=== PATIENT | male | born 1965 | race Caucasian/White ===

== ENCOUNTER 2016-09-08 | Emergency (ER) | payer MEDICARE, MEDICAID ==
[2016-09-08] MEDS ORDERED: ONDANSETRON HCL INJ/PF 4 MG/2 ML SDV IV ONE (00:57)
[2016-09-08] MEDS ORDERED: ASPIRIN 81 MG TABLET, CHEWABLE PO ONE (00:57)
[2016-09-08] MEDS ORDERED: MORPHINE SULFATE 10 MG/ML INJ IV ONE (00:57)
--- NOTE | 2016-09-08 00:59 | ER Document Report ---
ED General - General Chief Complaint: Chest Pain Stated Complaint: CHEST PAIN,DIZZY,NAUSEA Time Seen by Provider: 09/08/16 00:49 Notes: Patient is a 51-year-old male that comes emergency department for chief complaint of chest pain, pain in his lower back, headache, intermittent lightheadedness. Patient states he started feeling symptoms at 2 PM today, he states he just arrived in town, he is moving from [facility]. Patient states symptom onset began with pain in his lower back on both sides. He denies shortness of breath, denies fever, denies vomiting, reports some nausea. Patient denies any history of AK, past medical history of hypertension, hyperlipidemia, hypothyroidism, kidney stones, anxiety. He normally takes 325 mg of aspirin daily, did not today, takes Xanax and Valium for anxiety, took neither today. Father had an AK. TRAVEL OUTSIDE OF THE [place] IN LAST 30 DAYS: No - Related Data Allergies/Adverse Reactions: azithromycin [From Zithromax] Allergy (Verified 09/08/16 02:04) carbamazepine [From Tegretol] Allergy (Verified 09/08/16 02:04) Penicillins Allergy (Verified 09/08/16 02:04) phenobarbital Allergy (Verified 09/08/16 02:04) phenytoin [From Dilantin] Allergy (Verified 09/08/16 02:04) Sulfa (Sulfonamide Antibiotics) Allergy (Verified 09/08/16 02:04) IVP Dye Allergy (Uncoded 09/08/16 02:04) Past Medical History - General Information source: Patient - Social History Smoking Status: Never Smoker Frequency of alcohol use: None Drug Abuse: None Lives with: Family Family History: CAD - father had an AK Patient has suicidal ideation: No Patient has homicidal ideation: No - Past Medical History Cardiac Medical History: Reports: Hx Hypercholesterolemia, Hx Hypertension Neurological Medical History: Reports: Hx Seizures Endocrine Medical History: Reports: Hx Hypothyroidism Renal/ Medical History: Denies: Hx Peritoneal Dialysis Musculoskeltal Medical History: Reports Hx Arthritis Psychiatric Medical History: Reports: Hx Anxiety Surgical Hx: Negative - Immunizations Immunizations up to date: Yes Hx Diphtheria, Pertussis, Tetanus Vaccination: Yes Review of Systems - Review of Systems Constitutional: See HPI EENT: No symptoms reported Cardiovascular: See HPI Respiratory: No symptoms reported Gastrointestinal: See HPI Genitourinary: No symptoms reported Male Genitourinary: No symptoms reported Musculoskeletal: See HPI Skin: No symptoms reported Hematologic/Lymphatic: No symptoms reported Neurological/Psychological: See HPI Physical Exam - Vital signs Vitals: Temp Pulse Resp BP Pulse Ox 97.4 F 96 16 130/90 H 100 09/08/16 00:07 09/08/16 00:07 09/08/16 00:07 09/08/16 00:07 09/08/16 00:07 Interpretation: Normal - General General appearance: Anxious In distress: None - HEENT Head: Normocephalic, Atraumatic Eyes: Normal Conjunctiva: Normal Extraocular movements intact: Yes Eyelashes: Normal Pupils: PERRL Nasal: Normal Mouth/Lips: Normal Mucous membranes: Normal Pharynx: Normal Neck: Normal - Respiratory Respiratory status: No respiratory distress Chest status: Tender - There is mild generalized tenderness over the anterior abdomen worse on the left side, nonspecific, no swelling, no ecchymosis, not specifically reproducible Breath sounds: Normal. No: Decreased air movement, Wheezing Chest palpation: Normal - Cardiovascular Rhythm: Regular. No: Tachycardia Heart sounds: Normal auscultation, S1 appreciated, S2 appreciated Murmur: No - Abdominal Inspection: Normal Distension: No distension Bowel sounds: Normal Tenderness: Nontender - Completely unremarkable abdominal exam. No: Tender, Guarding Organomegaly: No organomegaly - Back Back: Normal, Nontender. No: Tender - I do not appreciate any tenderness or abnormality over the back, CVA tenderness - Extremities General upper extremity: Normal inspection, Nontender, Normal color, Normal ROM , Normal temperature General lower extremity: Normal inspection, Nontender, Normal color, Normal ROM , Normal temperature, Normal weight bearing. No: Rosas's sign - Neurological Neuro grossly intact: Yes Cognition: Normal Orientation: AAOx4 Aidan Coma Scale Eye Opening: Spontaneous Hungry Horse Coma Scale Verbal: Oriented Hung[place] Horse Coma Scale Motor: Obeys Commands Aidan Coma Scale Total: 15 Speech: Normal Motor strength normal: LUE, RUE, LLE, RLE Sensory: Normal - Psychological Associated symptoms: Other - Patient becomes anxious easily but does carry on a coherent conversation, is not aggressive or agitated, is not irritable - Skin Skin Temperature: Warm Skin Moisture: Dry Skin Color: Normal Course - Re-evaluation Re-evalutation: EKG showing sinus rhythm with no T-wave inversions or ST segment changes in consecutive leads. Borderline left axis deviation. No acute abnormalities. Chest x-ray unremarkable. Chemistry, CBC unremarkable. Initial cardiac enzymes negative, d-dimer is negative. On reexamination patient states he feels much better but feels like he cannot relax and is still having some intermittent pains. Given Ativan, after this symptoms completely resolved. I discussed workup with patient, discussed potential follow-up with cardiology, discussed telemetry observation in the hospital. Patient states he is not palpable going home. Patient does have positive family history, hypertension, hyperlipidemia, obesity. Discussed with Dr. Jones. Discussed with Dr. Whaley, internal medicine, patient will be admitted to telemetry observation. - Vital Signs Vital signs: Temp Pulse Resp BP Pulse Ox 97.4 F 75 18 124/95 H 97 09/08/16 00:07 09/08/16 04:18 09/08/16 02:01 09/08/16 04:00 09/08/16 04:01 - Laboratory Result Diagrams: 09/08/16 01:35 09/08/16 01:35 Discharge - Discharge Clinical Impression: Chest pain Qualifiers: Chest pain type: unspecified Qualified Code(s): R07.9 - Chest pain, unspecified Condition: Stable Disposition: HOME, SELF-CARE Admitting Provider: Hospitalist Unit Admitted: Telemetry
[2016-09-08 01:44] LABS: ABSOLUTE EOSINOPHILS # (AUTO) 0.1 10^3/uL (0.0-0.6); ABSOLUTE LYMPHOCYTES (AUTO) 3.6 10^3/uL (0.5-4.7); ABSOLUTE MONOCYTES (AUTO) 0.8 10^3/uL (0.1-1.4); ABSOLUTE NEUT (AUTO) 4.2 10^3/uL (1.7-8.2); BASOPHILS % (AUTO) 0.5 % (0-2); EOSINOPHILS % (AUTO) 0.9 % (0-6); HEMATOCRIT 43.6 % (37.9-51.0); HEMOGLOBIN 14.9 g/dL (13.5-17.0); HGB HCT DIFFERENCE 1.1; LYMPHOCYTES % (AUTO) 41.3 % (13-45); MEAN CORPUSCULAR HGB CONC 34.3 g/dL (32.0-36.0); MEAN CORPUSCULAR VOLUME 93 fl (80-97); MONOCYTES % (AUTO) 9.1 % (3-13); RED BLOOD COUNT 4.67 10^6/uL (4.35-5.55); RED CELL DISTRIBUTION WIDTH 13.9 % (11.5-14.0); SEGMENTED NEUTROPHILS % (AUTO) 48.2 % (42-78); WHITE BLOOD COUNT 8.7 10^3/uL (4.0-10.5)
[2016-09-08 01:59] LABS: ALANINE AMINOTRANSFERASE 47 U/L (21-72); ALBUMIN 4.4 g/dL (3.5-5.0); ALKALINE PHOSPHATASE 69 U/L (38-126); ANION GAP 11 (5-19); ASPARTATE AMINO TRANSFERASE 31 U/L (17-59); BILIRUBIN,DIRECT 0.4 mg/dL (0.0-0.4); BILIRUBIN,TOTAL 0.8 mg/dL (0.2-1.3); BLOOD UREA NITROGEN 14 mg/dL (7-20); CALCIUM 9.7 mg/dL (8.4-10.2); CARBON DIOXIDE 25 mmol/L (22-30); CHLORIDE 105 mmol/L (98-107); CREATINE KINASE 68 U/L (55-170); CREATININE RESULT 0.79 mg/dL (0.52-1.25); GLUCOSE 110 mg/dL (75-110); POTASSIUM 4.6 mmol/L (3.6-5.0); SODIUM 140.9 mmol/L (137-145)
[2016-09-08 02:10] LABS: CREATINE KINASE MB 0.58 ng/mL (<4.55)
[2016-09-08 02:11] LABS: TROPONIN I < 0.012 ng/mL
[2016-09-08] MEDS ORDERED: LORAZEPAM 1 MG TABLET PO ONE (03:02)
[2016-09-08 05:30] LABS: APPEARANCE,URINE CLEAR; BILIRUBIN,URINE NEGATIVE (NEGATIVE); GLUCOSE, URINE NEGATIVE (NEGATIVE); KETONES,URINE NEGATIVE (NEGATIVE); LEUKOCYTE ESTERASE,URINE NEGATIVE (NEGATIVE); NITRITE,URINE NEGATIVE (NEGATIVE); PROTEIN,URINE NEGATIVE (NEGATIVE); URINE SPECIFIC GRAVITY 1.015; UROBILINOGEN,URINE NEGATIVE mg/dL (<2.0)
[2016-09-08] MEDS ORDERED: TRAZODONE HCL 50 MG TABLET PO PRN (05:30)
[2016-09-08] MEDS ORDERED: DIAZEPAM 5 MG TABLET PO PRN (05:30)
--- NOTE | 2016-09-08 05:51 | PDOC H&P ---
History of Present Illness Admission Date/PCP: 09/08/16 04:40 Patient complains of: Chest pain History of Present Illness: GABRIELLE QUILES is a 51 year old male with a past medical history of seizure disorder, dyslipidemia, hypothyroidism, hypertension and obesity who been in his usual state of health until approximately 12 hours prior to presentation developing left-sided retrosternal chest pain which was dull in nature and nonradiating occurring while at rest. Not associated with shortness of breath palpitations nausea vomiting however his pain is becoming gradually worse to a 4 -5 intensity prompting his seek evaluation emergency room. He's had several episodes in the past and believes he has had between 6 and 8 negative cardiac stress tests. He believes his most recent was approximately a year ago. His previous chest pain was believed secondary to uncontrolled hypertension. In the emergency room he has an unremarkable workup is referred to the hospitalist for admission. Denies leg swelling shortness of breath or cough and recent change in medications. Past Medical History Cardiac Medical History: Reports: Hypertension Endocrine Medical History: Reports: Hypothyroidism, Obesity Social History Information Source: Patient Lives with: Family Smoking Status: Never Smoker Drugs: None - Advance Directive Resuscitation Status: Full Code Family History Family History: CAD Parental Family History Reviewed: Yes Children Family History Reviewed: Yes Sibling(s) Family History Reviewed.: Yes Medication/Allergy Allergies/Adverse Reactions: azithromycin [From Zithromax] Allergy (Verified 09/08/16 02:04) carbamazepine [From Tegretol] Allergy (Verified 09/08/16 02:04) Penicillins Allergy (Verified 09/08/16 02:04) phenobarbital Allergy (Verified 09/08/16 02:04) phenytoin [From Dilantin] Allergy (Verified 09/08/16 02:04) Sulfa (Sulfonamide Antibiotics) Allergy (Verified 09/08/16 02:04) IVP Dye Allergy (Uncoded 09/08/16 02:04) Review of Systems Constitutional: ABSENT: chills, fever(s), headache(s), weight gain, weight loss Eyes: ABSENT: visual disturbances Ears: ABSENT: hearing changes Cardiovascular: ABSENT: chest pain, dyspnea on exertion, edema, orthropnea, palpitations Respiratory: ABSENT: cough, hemoptysis Gastrointestinal: ABSENT: abdominal pain, constipation, diarrhea, hematemesis, hematochezia, nausea, vomiting Genitourinary: ABSENT: dysuria, hematuria Musculoskeletal: ABSENT: joint swelling Integumentary: ABSENT: rash, wounds Neurological: ABSENT: abnormal gait, abnormal speech, confusion, dizziness, focal weakness, syncope Psychiatric: ABSENT: anxiety, depression, homidical ideation, suicidal ideation Endocrine: ABSENT: cold intolerance, heat intolerance, polydipsia, polyuria Hematologic/Lymphatic: ABSENT: easy bleeding, easy bruising Physical Exam Vital Signs: Temp Pulse Resp BP Pulse Ox 97.4 F 75 18 124/95 H 97 09/08/16 00:07 09/08/16 04:18 09/08/16 02:01 09/08/16 04:00 09/08/16 04:01 General appearance: PRESENT: no acute distress, well-developed, well-nourished Head exam: PRESENT: atraumatic, normocephalic Eye exam: PRESENT: conjunctiva pink, EOMI, PERRLA. ABSENT: scleral icterus Ear exam: PRESENT: normal external ear exam Mouth exam: PRESENT: moist, tongue midline Neck exam: ABSENT: carotid bruit, JVD, lymphadenopathy, thyromegaly Respiratory exam: PRESENT: clear to auscultation aaron. ABSENT: rales, rhonchi, wheezes Cardiovascular exam: PRESENT: RRR. ABSENT: diastolic murmur, rubs, systolic murmur Pulses: PRESENT: normal dorsalis pedis pul Vascular exam: PRESENT: normal capillary refill GI/Abdominal exam: PRESENT: normal bowel sounds, soft. ABSENT: distended, guarding, mass, organolmegaly, rebound, tenderness Rectal exam: PRESENT: deferred Extremities exam: PRESENT: full ROM. ABSENT: calf tenderness, clubbing, pedal edema Neurological exam: PRESENT: alert, awake, oriented to person, oriented to place , oriented to time, oriented to situation, CN II-XII grossly intact. ABSENT: motor sensory deficit Psychiatric exam: PRESENT: appropriate affect, normal mood. ABSENT: homicidal ideation, suicidal ideation Skin exam: PRESENT: dry, intact, warm. ABSENT: cyanosis, rash Results Impressions: Chest X-Ray 09/08/16 00:57 IMPRESSION: NO ACUTE RADIOGRAPHIC FINDING IN THE CHEST. Assessment & Plan - Diagnosis (1) Hypertension Is this a current diagnosis for this admission?: YesPlan: Appears compensated continue outpatient regiment (2) Dyslipidemia Is this a current diagnosis for this admission?: YesPlan: Will obtain lipid profile for evaluation and when necessary optimization (3) Hypothyroidism Is this a current diagnosis for this admission?: YesPlan: Appears euthyroid will defer to outpatient for follow-up (4) Chest pain Qualifiers: Chest pain type: unspecified Qualified Code(s): R07.9 - Chest pain, unspecified Is this a current diagnosis for this admission?: YesPlan: Somewhat atypical however risk factors including family history of coronary artery disease in his father. Will obtain serial cardiac enzymes, lipid profile and treadmill stress test - Time Time Spent: 30 to 50 Minutes
--- NOTE | 2016-09-08 08:37 | EKG REPORT ---
SEVERITY:- OTHERWISE NORMAL ECG - SINUS RHYTHM BORDERLINE LEFT AXIS DEVIATION : Confirmed by: Unique Crook 08-Sep-2016 08:36:01
[2016-09-08] MEDS ORDERED: DOCUSATE SODIUM 100 MG CAPSULE PO SCH (10:00)
--- NOTE | 2016-09-08 13:14 | PDOC DISCHARGE SUMMARY ---
General - Admit/Disc Date/PCP Admission Date/Primary Care Provider: 09/08/16 05:30 Discharge Date: 09/08/16 - Discharge Diagnosis (1) Chest pain Is this a current diagnosis for this admission?: YesSummary: Ruled out for acute coronary syndrome, most likely musculoskeletal origin (2) Hypothyroidism Is this a current diagnosis for this admission?: YesSummary: Continue synthroid (3) Dyslipidemia Is this a current diagnosis for this admission?: YesSummary: Continue statin (4) Hypertension Is this a current diagnosis for this admission?: YesSummary: Continue home medications - Additional Information Resuscitation Status: Full Code Discharge Diet: Regular Discharge Activity: Activity As Tolerated, Balance Activity w/Rest Home Medications: Allopurinol [Zyloprim 300 mg Tablet] 150 mg PO DAILY 09/08/16 Alprazolam [Xanax] 2 mg PO TIDP PRN 09/08/16 Amlodipine Besylate [Norvasc 5 mg Tablet] 5 mg PO DAILY 09/08/16 Aspirin [Aspirin 325 mg Tablet] 325 mg PO DAILY 09/08/16 Divalproex Sodium [Depakote ER] 1,000 mg PO BID 09/08/16 Ergocalciferol (Vitamin D2) [Drisdol 50,000 unit (1.25MG) Capsule] 50,000 unit PO WE 09/08/16 Gabapentin [Neurontin 300 mg Capsule] 300 mg PO Q8 09/08/16 Indomethacin [Indocin 50 mg Capsule] 50 mg PO TID 09/08/16 Levothyroxine Sodium [Synthroid] 25 mcg PO QAM 09/08/16 Levothyroxine Sodium [Synthroid] 200 mcg PO QAM 09/08/16 Lisinopril [Prinivil] 20 mg PO Q12 09/08/16 Nabumetone [Relafen] 750 mg PO BID 09/08/16 Rosuvastatin Calcium [Crestor 20 mg Tablet] 20 mg PO DAILY 09/08/16 Tamsulosin HCl [Flomax 0.4 mg Cap.sr] 0.4 mg PO DAILY 09/08/16 Zolpidem Tartrate [Ambien 5 mg Tablet] 5 mg PO HSP PRN 09/08/16 History of Present Illness Patient complains of: Chest pain History of Present Illness: GABRIELLE QUILES is a 51 year old male Hospital Course Hospital Course: GABRIELLE QUILES is a 51 year old male with a past medical history of seizure disorder, dyslipidemia, hypothyroidism, hypertension and obesity who been in his usual state of health until approximately 12 hours prior to presentation developing left-sided retrosternal chest pain which was dull in nature and nonradiating occurring while at rest. Not associated with shortness of breath palpitations nausea vomiting however his pain is becoming gradually worse to a 4 -5 intensity prompting his seek evaluation emergency room. He's had several episodes in the past and believes he has had between 6 and 8 negative cardiac stress tests. He believes his most recent was approximately a year ago. His previous chest pain was believed secondary to uncontrolled hypertension. In the emergency room he has an unremarkable workup is referred to the hospitalist for admission. Denies leg swelling shortness of breath or cough and recent change in medications. Physical Exam Vital Signs: Temp Pulse Resp BP Pulse Ox 97.6 F 83 18 135/80 H 95 09/08/16 12:43 09/08/16 12:43 09/08/16 12:43 09/08/16 12:43 09/08/16 12:43 General appearance: PRESENT: no acute distress, well-developed, well-nourished Head exam: PRESENT: atraumatic, normocephalic Eye exam: PRESENT: conjunctiva pink, EOMI, PERRLA. ABSENT: scleral icterus Ear exam: PRESENT: normal external ear exam Mouth exam: PRESENT: moist, tongue midline Neck exam: ABSENT: carotid bruit, JVD, lymphadenopathy, thyromegaly Respiratory exam: PRESENT: clear to auscultation aaron. ABSENT: rales, rhonchi, wheezes Cardiovascular exam: PRESENT: RRR. ABSENT: diastolic murmur, rubs, systolic murmur Pulses: PRESENT: normal dorsalis pedis pul Vascular exam: PRESENT: normal capillary refill GI/Abdominal exam: PRESENT: normal bowel sounds, soft. ABSENT: distended, guarding, mass, organolmegaly, rebound, tenderness Rectal exam: PRESENT: deferred Extremities exam: PRESENT: full ROM. ABSENT: calf tenderness, clubbing, pedal edema Neurological exam: PRESENT: alert, awake, oriented to person, oriented to place , oriented to time, oriented to situation, CN II-XII grossly intact. ABSENT: motor sensory deficit Psychiatric exam: PRESENT: appropriate affect, normal mood. ABSENT: homicidal ideation, suicidal ideation Skin exam: PRESENT: dry, intact, warm. ABSENT: cyanosis, rash Results Laboratory Results: 09/08/16 10:25 Troponin I < 0.012 Impressions: Chest X-Ray 09/08/16 00:57 IMPRESSION: NO ACUTE RADIOGRAPHIC FINDING IN THE CHEST. Qualifiers PATEINT BEING DISCHARGED WITH ANY OF THE FOLLOWING DIAGNOSIS?: No Plan Discharge Plan: Home with family Time Spent: Less than 30 Minutes
[2016-09-08 14:06] VITALS: BP 137/93
== END 2016-09-08 14:07 | disposition home or self-care (01) ==
LOC: ER → EH 04:40 → UNDOADMOB 04:40 → EH 05:30 → UNDODISOB 14:07
DX: R07.9 Chest pain, unspecified (principal); R42 Dizziness and giddiness; R11.0 Nausea; R51 Headache; E78.5 Hyperlipidemia, unspecified; E78.00 Pure hypercholesterolemia, unspecified; I10 Essential (primary) hypertension; E03.9 Hypothyroidism, unspecified; Z88.3 Allergy status to other anti-infective agents; Z88.0 Allergy status to penicillin; Z88.2 Allergy status to sulfonamides; Z91.041 Radiographic dye allergy status; Z79.82 Long term (current) use of aspirin; E66.9 Obesity, unspecified
CPT/HCPCS: 93005; 99285; 96374; 96375; 36415; 82553; 82550; 85025; 80053; 81001; 84484; 85379; 71010; 93010; G0378; A9270 ×2; J2270; J3490; J2405

== ENCOUNTER 2016-09-28 13:10 | Emergency (ER) | payer MEDICARE, MEDICAID ==
[2016-09-28 13:19] VITALS: BP 129/85
[2016-09-28] MEDS ORDERED: CYCLOBENZAPRINE HCL 10 MG TABLET PO ONE (13:40)
--- NOTE | 2016-09-28 13:42 | ER Document Report ---
HPI - HPI Patient complains to provider of: muscle spasms Pain Level: 2 Context: patient is a 51 year old male who presents with back spasms for the past week that were initally intermittent but now more frequent and severe over the blair two days. patient admits to walking a long distance that he is not used to which he states caused him to have these spasms. denies ui, si, sa. able to walk without difficulty. - DERM Skin Color: Normal Past Medical History - Social History Smoking Status: Unknown if Ever Smoked Family History: CAD - father had an [facility] Patient has suicidal ideation: No Patient has homicidal ideation: No - Past Medical History Cardiac Medical History: Reports: Hx Hypercholesterolemia, Hx Hypertension Neurological Medical History: Reports: Hx Seizures Endocrine Medical History: Reports: Hx Hypothyroidism Renal/ Medical History: Denies: Hx Peritoneal Dialysis Musculoskeltal Medical History: Reports Hx Arthritis Psychiatric Medical History: Reports: Hx Anxiety - Immunizations Immunizations up to date: Yes Hx Diphtheria, Pertussis, Tetanus Vaccination: Yes Vertical Provider Document - CONSTITUTIONAL Agree With Documented VS: Yes Exam Limitations: No Limitations General Appearance: WD/WN, No Apparent Distress - INFECTION CONTROL TRAVEL OUTSIDE OF THE [place] IN LAST 30 DAYS: No - RESPIRATORY O2 Sat by Pulse Oximetry: 95 - CARDIOVASCULAR Pulses: Normal: Radial, Dorsalis pedis - BACK Back: Normal Inspection Notes: No evidence of spinous process tenderness, deformity, step-offs, paraspinous muscle tenderness left thoracic adjacent shoulder blade. - MUSCULOSKELETAL/EXTREMETIES Musculoskeletal/Extremeties: MAEW, FROM, Non-Tender, No Edema - NEURO Level of Consciousness: Awake, Alert, Appropriate Motor/Sensory: No Motor Deficit, No Sensory Deficit - DERM Integumentary: Warm, Dry, No Rash Course - Re-evaluation Re-evalutation: 09/28/16 15:32 The patient presents with low back pain without signs of spinal cord compression , cauda equina syndrome, infection, aneurysm, or other serious etiology. The patient is neurologically intact. Given the extremely low risk of these diagnoses further testing and evaluation for these possibilities does not appear to be indicated at this time. The patient has been instructed to return if the symptoms worsen or change in any way. - Vital Signs Vital signs: Temp Pulse Resp BP Pulse Ox 98.2 F 80 18 129/85 H 95 09/28/16 13:17 09/28/16 13:17 09/28/16 13:17 09/28/16 13:17 09/28/16 13:17 Discharge - Discharge Clinical Impression: Muscle spasm Condition: Good Disposition: HOME, SELF-CARE Instructions: Muscle Strain ([facility]), Low Back Pain ([facility]), Warm Packs ([facility]), Stretching Exercises for the Back ([facility]) Prescriptions: Cyclobenzaprine HCl [Flexeril 10 mg Tablet] 10 mg PO TIDP PRN #15 tab PRN Reason: Referrals: GABRIELLE JOHN DO [NO LOCAL MD] - Follow up as needed
== END 2016-09-28 14:02 | disposition home or self-care (01) ==
LOC: ER 13:10
DX: M62.830 Muscle spasm of back (principal); E78.00 Pure hypercholesterolemia, unspecified; I10 Essential (primary) hypertension
CPT/HCPCS: 99283; A9270